=== PATIENT | male | born 1965 | race Caucasian/White ===

== ENCOUNTER 2018-11-10 18:05 | Emergency (ER) | payer BC ==
[~2018-11-10] VITALS: Ht 182.9 cm; Wt 105.2 kg
[2018-11-10 18:11] VITALS: BP_SYST 140
--- NOTE | 2018-11-10 18:52 | NUR ---
Patient to [facility] for evaluation. Side rails up. Report received from mary Mohan
--- NOTE | 2018-11-10 18:55 | NUR ---
pt brought in by self, pt a/o x4. Pt states he has had cough for several days. pt states cough is persistent and causes abd pain during coughing fits. Pt denies cp, n/v, diarrhea, dizziness, sob. Pt denies any other complaint at this time. pt resting in hallway bed 1, persistent coughing present.
--- NOTE | 2018-11-10 18:55 | NUR ---
PATY Shelton at bedside examining patient.
[2018-11-10 19:43] VITALS: BP_SYST 140
--- NOTE | 2018-11-10 19:43 | NUR ---
Patient given written and verbal discharge instructions and verbalizes understanding. ER MD discussed with patient the results and treatment provided. Patient in stable condition. ID arm band removed. Rx of codeine cough syrup, ibuprofen, azithromax, albuterol given. Patient educated on pain management and to follow up with PMD. Pain Scale 2/10. Opportunity for questions provided and answered. Medication side effect fact sheet provided.
== END 2018-11-10 19:43 | disposition home or self-care (01) ==
LOC: SED 18:05
DX: R05 Cough (principal); R03.0 Elevated blood-pressure reading, without diagnosis of hypertension; E78.00 Pure hypercholesterolemia, unspecified
CPT/HCPCS: 71046-TC; 99283